=== PATIENT | female | born 1960 | race African-American/Black ===

== ENCOUNTER 2017-03-12 16:13 | Emergency (ER) | payer OTHER ==
[~2017-03-12] VITALS: Ht 180.3 cm; Wt 102.1 kg
[2017-03-12] MEDS ORDERED: MORPHINE SULFATE 4 MG/ML, 1ML ONE (16:16)
[2017-03-12] MEDS ORDERED: ONDANSETRON 2MG/ML, 2ML ONE (16:17)
[2017-03-12] MEDS ORDERED: MORPHINE SULFATE 4 MG/ML, 1ML IVPush ONE ×2 (16:30→18:30)
[2017-03-12] MEDS ORDERED: ONDANSETRON 2MG/ML, 2ML IVPush ONE (16:30)
[2017-03-12] MEDS ORDERED: AMLO2.5T PO (16:53)
[2017-03-12] MEDS ORDERED: HYDR12.53 PO (16:53)
[2017-03-12] MEDS ORDERED: SERT25TA PO (16:53)
[2017-03-12] MEDS ORDERED: LEVO25TA2 PO (16:53)
[2017-03-12] MEDS ORDERED: ATEN25TA PO (16:53)
[2017-03-12] MEDS ORDERED: HYDROcodone/APAP 5/325 TABLET ONE (18:58)
[2017-03-12] MEDS ORDERED: HYDROcodone/APAP 5/325 TABLET PO ONE (19:00)
[2017-03-12 19:01] VITALS: BP 154/79
== END 2017-03-12 19:23 ==
LOC: ED 19:17
DX: S29.012A Strain of muscle and tendon of back wall of thorax, initial encounter (principal); S39.012A Strain of muscle, fascia and tendon of lower back, initial encounter; I10 Essential (primary) hypertension; W07.XXXA Fall from chair, initial encounter; Y93.89 Activity, other specified; Y99.8 Other external cause status; Y92.89 Other specified places as the place of occurrence of the external cause
CPT/HCPCS: 72072; 72110; 96374; 96375; 99284; J2405

== ENCOUNTER 2017-03-13 08:19 | Emergency (ER) | payer OTHER ==
[~2017-03-13] VITALS: Ht 180.3 cm; Wt 95.0 kg
[~2017-03-13 08:19] MED LIST: AMLO2.5T PO; ATEN25TA PO; HYDR12.53 PO; LEVO25TA2 PO; SERT25TA PO
[2017-03-13 08:21] VITALS: BP 180/106
[2017-03-13] MEDS ORDERED: OXYcodone/APAP 5/325MG TABLET ONE (08:57)
[2017-03-13] MEDS ORDERED: OXYcodone/APAP 5/325MG TABLET PO ONE (09:00)
== END 2017-03-13 10:49 | disposition home or self-care (01) ==
LOC: ED 08:53
DX: S16.1XXA Strain of muscle, fascia and tendon at neck level, initial encounter (principal); S09.90XA Unspecified injury of head, initial encounter; S39.012A Strain of muscle, fascia and tendon of lower back, initial encounter; I10 Essential (primary) hypertension; X58.XXXA Exposure to other specified factors, initial encounter; Y93.89 Activity, other specified; Y92.89 Other specified places as the place of occurrence of the external cause; Y99.8 Other external cause status
CPT/HCPCS: 70450; 72125; 99284